=== PATIENT | female | born 1945 | race Caucasian/White ===

== ENCOUNTER 2018-03-18 15:55 | Observation (INO) | payer MEDICARE ==
--- NOTE | 2018-03-18 16:06 | ER Document Report ---
ED Cardiac - General Chief Complaint: Chest Pain > 30 Stated Complaint: CHEST PAIN Time Seen by Provider: 03/18/18 16:06 Mode of Arrival: Medic Information source: Patient, Emergency Med Personnel - HPI Patient complains to provider of: Chest pain Use of: denies: Alcohol, Amphetamines, Bath salts, Caffeine, Cocaine, Decongestants Was the onset of pain: Sudden Is the pain a: New problem Chest pain location: Other - XIPHOID Quality of pain: Pressure, Sharp Chest pain radiation location: None Severity now: None Severity at worst: Moderate Chest pain precipitating factors: At Rest Cardiac risk factors: Hypertension, Dyslipidemia Positive cardiac history: No Associated symptoms: Diaphoresis, Nausea/vomiting. denies: Shortness of breath Exacerbated by: Denies Relieved by: Other - ASA & NTG Similar symptoms previously: No Recently seen / treated by doctor: Yes - [facility], EMS TRANSPORT TO . - Related Data Allergies/Adverse Reactions: metoprolol [From Lopressor] Allergy (Verified 03/18/18 16:06) pregabalin [From Lyrica] Allergy (Verified 03/18/18 16:06) Sulfa (Sulfonamide Antibiotics) Allergy (Verified 03/18/18 16:06) Past Medical History - General Information source: Patient - Social History Smoking Status: Never Smoker Cigarette use (# per day): No Chew tobacco use (# tins/day): No Frequency of alcohol use: None Drug Abuse: None Lives with: Family Family History: None Patient has suicidal ideation: No Patient has homicidal ideation: No - Past Medical History Cardiac Medical History: Reports: Hx Hypercholesterolemia, Hx Hypertension Pulmonary Medical History: Reports: None EENT Medical History: Reports: None Neurological Medical History: Reports: None Endocrine Medical History: Reports: Hx Hypothyroidism Renal/ Medical History: Reports: None Malignancy Medical History: Reports: None GI Medical History: Reports: Hx Gastroesophageal Reflux Disease Musculoskeltal Medical History: Reports Hx Arthritis Psychiatric Medical History: Reports: None Past Surgical History: Reports: Hx Hysterectomy, Hx Orthopedic Surgery Review of Systems - Review of Systems Constitutional: See HPI EENT: No symptoms reported Cardiovascular: See HPI Respiratory: No symptoms reported Gastrointestinal: See HPI Genitourinary: No symptoms reported Female Genitourinary: Post menopausal Musculoskeletal: No symptoms reported Skin: No symptoms reported Neurological/Psychological: No symptoms reported Physical Exam - Vital signs Vitals: Resp Pulse Ox 17 99 03/18/18 16:00 03/18/18 16:00 Interpretation: Normal. No: Hypertensive, Tachycardic, Tachypneic - General General appearance: Appears well, Alert In distress: None - HEENT Head: Normocephalic Eyes: Normal Conjunctiva: Normal Ears: Normal Nasal: Normal Mouth/Lips: Normal Mucous membranes: Normal - Respiratory Respiratory status: No respiratory distress Breath sounds: Normal - Cardiovascular Rhythm: Regular Heart sounds: Normal auscultation Murmur: No - Abdominal Inspection: Normal Bowel sounds: Normal - Back Back: Normal - Extremities General upper extremity: Normal inspection General lower extremity: Normal inspection. No: Tender, Edema - Neurological Neuro grossly intact: Yes Cognition: Normal Orientation: AAOx4 - Psychological Associated symptoms: Normal affect, Normal mood - Skin Skin Temperature: Warm Skin Moisture: Dry Skin Color: Normal Skin Turgor: Elastic Course - Re-evaluation Re-evalutation: 03/18/18 18:36 Patient reports she is still asymptomatic. Results of laboratory and radiographic studies discussed. Patient states she recalls that she had a similar but less severe episode about 1 week ago, which resolved after she vomited. She has no known history of liver or gallbladder disease, however this needs to be ruled out in light of the elevations in LFTs. - Vital Signs Vital signs: Temp Pulse Resp BP Pulse Ox 97.7 F 65 22 H 117/53 L 95 03/18/18 16:04 03/18/18 16:04 03/18/18 18:01 03/18/18 18:01 03/18/18 18:01 - Laboratory Result Diagrams: 03/18/18 16:40 03/18/18 16:40 Laboratory results interpreted by me: 03/18/18 03/18/18 16:40 16:40 Seg Neutrophils % 84.9 H Lymphocytes % 9.6 L Glucose 113 H Direct Bilirubin 0.8 H AST 267 H ALT 212 H - Diagnostic Test Radiology reviewed: Image reviewed, Reports reviewed - EKG Interpretation by Me EKG shows normal: Sinus rhythm, [place], Intervals, QRS Complexes. abnormal: ST-T Waves - LAT. T ABNLS, ? ISCHEMIC Rate: Normal Rhythm: NSR - Consults DR. SOOD Time consulted: 20:56 Consulted provider: will come to ER Discharge - Discharge Clinical Impression: Chest pain Qualifiers: Chest pain type: unspecified Qualified Code(s): R07.9 - Chest pain, unspecified Cholelithiasis NOS Qualifiers: Cholelithiasis location: gallbladder Cholecystitis presence: without cholecystitis Biliary obstruction: without biliary obstruction Qualified Code(s) : K80.20 - Calculus of gallbladder without cholecystitis without obstruction Condition: Good Disposition: ADMITTED OBSERVATION Admitting Provider: Hospitalist Unit Admitted: Telemetry
[2018-03-18] MEDS ORDERED: NITROGLYCERIN 2% OINTMENT 1 GM PACKET TP ONE (16:20)
--- NOTE | 2018-03-18 16:41 | EKG REPORT ---
SEVERITY:- ABNORMAL ECG - SINUS RHYTHM ABNORMAL T, CONSIDER ISCHEMIA, LATERAL LEADS : Confirmed by: Bakari Aguirre MD 18-Mar-2018 16:40:36
[2018-03-18 16:59] LABS: ABSOLUTE LYMPHOCYTES (AUTO) 0.7 10^3/uL (0.5-4.7); ABSOLUTE MONOCYTES (AUTO) 0.3 10^3/uL (0.1-1.4); ABSOLUTE NEUT (AUTO) 6.4 10^3/uL (1.7-8.2); BASOPHILS % (AUTO) 0.4 % (0-2); EOSINOPHILS % (AUTO) 0.4 % (0-6); HEMATOCRIT 37.3 % (36.0-47.0); LYMPHOCYTES % (AUTO) 9.6 % (13-45); MEAN CORPUSCULAR HEMOGLOBIN 28.4 pg (27.0-33.4); MEAN CORPUSCULAR HGB CONC 34.7 g/dL (32.0-36.0); MEAN CORPUSCULAR VOLUME 82 fl (80-97); MONOCYTES % (AUTO) 4.7 % (3-13); PLATELET COUNT 212 10^3/uL (150-450); RED BLOOD COUNT 4.56 10^6/uL (3.72-5.28); RED CELL DISTRIBUTION WIDTH 13.7 % (11.5-14.0); SEGMENTED NEUTROPHILS % (AUTO) 84.9 % (42-78); TOTAL CELLS COUNTED % (AUTO) 100 %; WHITE BLOOD COUNT 7.5 10^3/uL (4.0-10.5)
[2018-03-18 17:16] LABS: ALANINE AMINOTRANSFERASE 212 U/L (9-52); ALBUMIN 3.7 g/dL (3.5-5.0); ALKALINE PHOSPHATASE 121 U/L (38-126); ANION GAP 12 (5-19); ASPARTATE AMINO TRANSFERASE 267 U/L (14-36); BILIRUBIN,DIRECT 0.8 mg/dL (0.0-0.4); BILIRUBIN,TOTAL 0.8 mg/dL (0.2-1.3); BLOOD UREA NITROGEN 19 mg/dL (7-20); CALCIUM 9.2 mg/dL (8.4-10.2); CARBON DIOXIDE 25 mmol/L (22-30); CHLORIDE 107 mmol/L (98-107); CREATINE KINASE 49 U/L (30-135); GLUCOSE 113 mg/dL (75-110); SODIUM 143.7 mmol/L (137-145); TOTAL PROTEIN 6.3 g/dL (6.3-8.2)
--- NOTE | 2018-03-18 17:27 | RADIOLOGY REPORT (SQ) ---
EXAM DESCRIPTION: CHEST SINGLE VIEW COMPLETED DATE/TIME: 03/18/2018 5:14 pm REASON FOR STUDY: chest pain COMPARISON: None. EXAM PARAMETERS: NUMBER OF VIEWS: One view. TECHNIQUE: Single frontal radiographic view of the chest acquired. RADIATION DOSE: NA LIMITATIONS: None. FINDINGS: LUNGS AND PLEURA: No opacities, masses or pneumothorax. No pleural effusion. MEDIASTINUM AND HILAR STRUCTURES: No masses. Contour normal. HEART AND VASCULAR STRUCTURES: Heart normal in size. Normal vasculature. BONES: No acute findings. HARDWARE: None in the chest. OTHER: No other significant finding. IMPRESSION: NO ACUTE RADIOGRAPHIC FINDING IN THE CHEST. TECHNICAL DOCUMENTATION: JOB ID: [id number] [employer]- All Rights Reserved Reading location - IP/workstation name: [email or web address]
[2018-03-18 17:28] LABS: CREATINE KINASE MB 0.52 ng/mL (<4.55)
[2018-03-18 17:30] LABS: TROPONIN I < 0.012 ng/mL
--- NOTE | 2018-03-18 20:18 | RADIOLOGY REPORT (SQ) ---
EXAM DESCRIPTION: U/S ABDOMEN LIMITED W/O DOP COMPLETED DATE/TIME: 03/18/2018 8:08 pm REASON FOR STUDY: EPIGASTRIC AND R.U.Q. PAIN COMPARISON: None. TECHNIQUE: Dynamic and static grayscale images acquired of the abdomen and recorded on PACS. Bernardo rich selected color Doppler and spectral images recorded. LIMITATIONS: None. FINDINGS: PANCREAS: No masses. Visualized duct normal. Tail was obscured by gas. LIVER: 13.1 cm. Normal echotexture. No masses. LIVER VASCULATURE: Normal directional flow of the main portal vein and hepatic veins. GALLBLADDER: Cholelithiasis. Echogenic sludge. Mild wall thickening. No pericholecystic fluid. ULTRASOUND-DETECTED NAPIER'S SIGN: Negative. INTRAHEPATIC DUCTS AND COMMON DUCT: CBD and intrahepatic ducts normal caliber. No filling defects. INFERIOR VENA CAVA: Normal flow. AORTA: No aneurysm. RIGHT KIDNEY: Normal size, 9.6 cm. Normal echogenicity. No solid or suspicious masses. No hydronephr osis. No calcifications. PERITONEAL AND RIGHT PLEURAL SPACE: No ascites or effusions. OTHER: No other significant findings. IMPRESSION: Cholelithiasis with echogenic sludge and mild thickening of the gallbladder wall. There is no sonographic Napier sign or pericholecystic fluid. TECHNICAL DOCUMENTATION: JOB ID: [id number] [employer]- All Rights Reserved Reading location - IP/workstation name: [email or web address]
[2018-03-18] MEDS ORDERED: RINGERS SOLUTION,LACTATED 1,000 ML IV PRN (20:43)
[2018-03-18] MEDS ORDERED: METOCLOPRAMIDE HCL INJ/PF 10 MG/2 ML SDV IV ONE (20:43)
[2018-03-18] MEDS ORDERED: DIPHENHYDRAMINE HCL 50 MG/ML VIAL IV ONE (20:43)
[2018-03-18] MEDS ORDERED: NITROGLYCERIN 0.4 MG/TAB 25 TAB/BOTTLE SL PRN (20:56)
[2018-03-18] MEDS ORDERED: LACTULOSE SYRUP 20 GM/30 ML UDCUP PO ONE (20:59)
[2018-03-18] MEDS: HEPARIN SOD (PORCINE) 5,000 UNIT/ML 1 ML SYRINGE SUBCUT SCH (21:36)
[2018-03-18] MEDS ORDERED: DOCUSATE SODIUM 100 MG CAPSULE PO ONE (22:00)
[2018-03-19 01:14] LABS: CREATINE KINASE MB 0.47 ng/mL (<4.55)
[2018-03-19 01:18] LABS: TROPONIN I < 0.012 ng/mL
[2018-03-19] MEDS: HEPARIN SOD (PORCINE) 5,000 UNIT/ML 1 ML SYRINGE SUBCUT SCH ×3 (05:42→22:02)
--- NOTE | 2018-03-19 05:57 | PDOC H&P ---
History of Present Illness Admission Date/PCP: 03/18/18 21:08 Patient complains of: Chest pain History of Present Illness: ARNIE BOSE is a 72 year old female with a past medical history of hypertension, dyslipidemia, GERD and neuropathy. She presents with 6 hours of burning-like retrosternal chest pain which is nonradiating associated with nausea without vomiting no palpitations or shortness of breath. She admits a similar episode approximately a week ago which resolved following an episode of vomiting. Unable to identify alleviating or exacerbating factors, denies recent cardiac stress test or change of medications she denies constipation, diarrhea or hyperglycemia. In the emergency room her workup is significant for elevated LFTs with an unremarkable right upper quadrant ultrasound. She is referred to the hospitalist for admission. Past Medical History Cardiac Medical History: Reports: Hyperlipidema, Hypertension Pulmonary Medical History: Reports: None EENT Medical History: Reports: None Neurological Medical History: Reports: None Endocrine Medical History: Reports: Hypothyroidism Renal/ Medical History: Reports: None Malignancy Medical History: Reports: None GI Medical History: Reports: Gastroesophageal Reflux Disease Musculoskeltal Medical History: Reports: Arthritis Psychiatric Medical History: Reports: None Past Surgical History Past Surgical History: Reports: Hysterectomy, Orthopedic Surgery Social History Information Source: Patient Lives with: Family Smoking Status: Never Smoker Frequency of Alcohol Use: None Hx Recreational Drug Use: No Drugs: None Hx Prescription Drug Abuse: No - Advance Directive Resuscitation Status: Full Code Family History Family History: Hypertension Parental Family History Reviewed: Yes Children Family History Reviewed: Yes Sibling(s) Family History Reviewed.: Yes Medication/Allergy Allergies/Adverse Reactions: metoprolol [From Lopressor] Allergy (Verified 03/18/18 16:06) pregabalin [From Lyrica] Allergy (Verified 03/18/18 16:06) Sulfa (Sulfonamide Antibiotics) Allergy (Verified 03/18/18 16:06) Review of Systems Constitutional: ABSENT: chills, fever(s), headache(s), weight gain, weight loss Eyes: ABSENT: visual disturbances Ears: ABSENT: hearing changes Cardiovascular: ABSENT: chest pain, dyspnea on exertion, edema, orthropnea, palpitations Respiratory: ABSENT: cough, hemoptysis Gastrointestinal: ABSENT: abdominal pain, constipation, diarrhea, hematemesis, hematochezia, nausea, vomiting Genitourinary: ABSENT: dysuria, hematuria Musculoskeletal: ABSENT: joint swelling Integumentary: ABSENT: rash, wounds Neurological: ABSENT: abnormal gait, abnormal speech, confusion, dizziness, focal weakness, syncope Psychiatric: ABSENT: anxiety, depression, homidical ideation, suicidal ideation Endocrine: ABSENT: cold intolerance, heat intolerance, polydipsia, polyuria Hematologic/Lymphatic: ABSENT: easy bleeding, easy bruising Physical Exam Vital Signs: Temp Pulse Resp BP Pulse Ox 97.7 F 55 L 15 143/57 H 98 03/19/18 03:23 03/19/18 03:23 03/19/18 03:23 03/19/18 03:23 03/19/18 03:23 Intake & Output 03/17/18 03/18/18 03/19/18 11:59 11:59 11:59 Weight 85 kg General appearance: PRESENT: no acute distress, well-developed, well-nourished Head exam: PRESENT: atraumatic, normocephalic Eye exam: PRESENT: conjunctiva pink, EOMI, PERRLA. ABSENT: scleral icterus Ear exam: PRESENT: normal external ear exam Mouth exam: PRESENT: moist, tongue midline Neck exam: ABSENT: carotid bruit, JVD, lymphadenopathy, thyromegaly Respiratory exam: PRESENT: clear to auscultation randell. ABSENT: rales, rhonchi, wheezes Cardiovascular exam: PRESENT: RRR. ABSENT: diastolic murmur, rubs, systolic murmur Pulses: PRESENT: normal dorsalis pedis pul Vascular exam: PRESENT: normal capillary refill GI/Abdominal exam: PRESENT: normal bowel sounds, soft. ABSENT: distended, guarding, mass, organolmegaly, rebound, tenderness Rectal exam: PRESENT: deferred Extremities exam: PRESENT: full ROM. ABSENT: calf tenderness, clubbing, pedal edema Neurological exam: PRESENT: alert, awake, oriented to person, oriented to place , oriented to time, oriented to situation, CN II-XII grossly intact. ABSENT: motor sensory deficit Psychiatric exam: PRESENT: appropriate affect, normal mood. ABSENT: homicidal ideation, suicidal ideation Skin exam: PRESENT: dry, intact, warm. ABSENT: cyanosis, rash Results Laboratory Results: 03/19/18 00:39 CK-MB (CK-2) 0.47 Troponin I < 0.012 Impressions: Chest X-Ray 03/18/18 16:04 IMPRESSION: NO ACUTE RADIOGRAPHIC FINDING IN THE CHEST. Abdomen Ultrasound 03/18/18 18:32 IMPRESSION: Cholelithiasis with echogenic sludge and mild thickening of the gallbladder wall. There is no sonographic Sepulveda sign or pericholecystic fluid. Assessment & Plan - Diagnosis (1) Chest pain Qualifiers: Chest pain type: unspecified Qualified Code(s): R07.9 - Chest pain, unspecified Is this a current diagnosis for this admission?: Yes Plan: Atypical chest pain though the patient's pain is atypical there are multiple risk factors for coronary artery disease and subsequently will observe and evaluation of acute coronary syndrome versus coronary artery disease with anginal equivalents. Cardiac monitoring blood pressure Q6 hours ,TSH, lipid profile, serial cardiac enzymes and cardiac stress test (2) Elevated LFTs Is this a current diagnosis for this admission?: Yes Plan: Likely fatty liver disease. Follow-up lipid profile, consider diet modification and statin - Time Time Spent: 30 to 50 Minutes
[2018-03-19 07:03] LABS: ABSOLUTE EOSINOPHILS # (AUTO) 0.1 10^3/uL (0.0-0.6); ABSOLUTE LYMPHOCYTES (AUTO) 0.9 10^3/uL (0.5-4.7); ABSOLUTE MONOCYTES (AUTO) 0.2 10^3/uL (0.1-1.4); ABSOLUTE NEUT (AUTO) 2.1 10^3/uL (1.7-8.2); BASOPHILS % (AUTO) 0.7 % (0-2); EOSINOPHILS % (AUTO) 3.1 % (0-6); HEMATOCRIT 33.8 % (36.0-47.0); HEMOGLOBIN 11.8 g/dL (12.0-15.5); LYMPHOCYTES % (AUTO) 27.4 % (13-45); MEAN CORPUSCULAR HEMOGLOBIN 28.4 pg (27.0-33.4); MEAN CORPUSCULAR VOLUME 81 fl (80-97); MONOCYTES % (AUTO) 6.2 % (3-13); PLATELET COUNT 180 10^3/uL (150-450); RED BLOOD COUNT 4.17 10^6/uL (3.72-5.28); RED CELL DISTRIBUTION WIDTH 13.4 % (11.5-14.0); SEGMENTED NEUTROPHILS % (AUTO) 62.6 % (42-78); TOTAL CELLS COUNTED % (AUTO) 100 %; WHITE BLOOD COUNT 3.3 10^3/uL (4.0-10.5)
[2018-03-19 07:24] LABS: ALANINE AMINOTRANSFERASE 762 U/L (9-52); ALBUMIN 3.4 g/dL (3.5-5.0); ALKALINE PHOSPHATASE 182 U/L (38-126); ANION GAP 7 (5-19); ASPARTATE AMINO TRANSFERASE 676 U/L (14-36); BILIRUBIN,DIRECT 0.6 mg/dL (0.0-0.4); BILIRUBIN,TOTAL 1.2 mg/dL (0.2-1.3); BLOOD UREA NITROGEN 15 mg/dL (7-20); CALCIUM 8.8 mg/dL (8.4-10.2); CARBON DIOXIDE 28 mmol/L (22-30); CHLORIDE 109 mmol/L (98-107); CHOLESTEROL 173.74 mg/dL (0-200); CREATINE KINASE 39 U/L (30-135); GLUCOSE 89 mg/dL (75-110); POTASSIUM 4.2 mmol/L (3.6-5.0); TOTAL PROTEIN 5.9 g/dL (6.3-8.2); TRIGLYCERIDES 106 mg/dL (<150)
[2018-03-19 07:34] LABS: CREATINE KINASE MB 0.48 ng/mL (<4.55)
[2018-03-19 07:35] LABS: DIRECT LDL 93 mg/dL (<100)
[2018-03-19 07:37] LABS: TROPONIN I < 0.012 ng/mL
[2018-03-19] MEDS: DOCUSATE SODIUM 100 MG CAPSULE PO SCH ×2 (11:51→17:26)
[2018-03-19] MEDS ORDERED: HYDROCHLOROTHIAZIDE 25 MG TABLET PO PRN (12:57)
[2018-03-19] MEDS ORDERED: REGADENOSON INJ 0.4 MG/5 ML DISP.SYRIN IV ONE (13:58)
[2018-03-19] MEDS: LEVOTHYROXINE SODIUM 0.05 MG TABLET PO SCH (14:38)
[2018-03-19] MEDS ORDERED: LANSOPRAZOLE 15 MG TAB.RAP.DR PO PRN (14:38)
[2018-03-19] MEDS ORDERED: LIDOCAINE 2% VISCOUS SOLN 20 ML UDCUP PO ONE (16:08)
[2018-03-19] MEDS: MAG HYDROX/AL HYDROX/SIMETH SUSP 30 ML UDCUP PO PRN ×2 (16:39→22:02)
[2018-03-19] MEDS: LANSOPRAZOLE 15 MG TAB.RAP.DR PO SCH (16:39)
[2018-03-19] MEDS: ONDANSETRON 4 MG TAB.RAPDIS PO PRN (16:40)
--- NOTE | 2018-03-19 18:34 | EKG REPORT ---
SEVERITY:- ABNORMAL ECG - SINUS RHYTHM NONSPECIFIC T ABNORMALITIES, ANT-LAT LEADS : Confirmed by: Bakari Aguirre MD 19-Mar-2018 18:33:16
--- NOTE | 2018-03-19 20:22 | PDOC PROGRESS REPORT ---
Subjective Progress Note for:: 03/19/18 Subjective:: ARNIE BOSE is a 72 y.o. F with a PMH of HTN, HLD, GERD and neuropathy. She presents with burning retrosternal chest pain which is nonradiating associated with nausea without vomiting no palpitations or shortness of breath. The patient is seen this afternoon on rounds following her stress test. She still endorses mild epigastric "burning" pain. Pain is reproducable with palpation in the epigastric region. Additionally, she is TTP in the LLQ. She denies nausea, SOB, or diarrhea. Reason For Visit: CHEST PAIN ELEVATED LFTS Physical Exam Vital Signs: Temp Pulse Resp BP Pulse Ox 98.0 F 56 L 24 H 159/61 H 96 03/19/18 15:52 03/19/18 15:52 03/19/18 15:52 03/19/18 15:52 03/19/18 11:18 Intake & Output 03/18/18 03/19/18 03/20/18 06:59 06:59 06:59 Intake Total 0 1125 Output Total 600 Balance -600 1125 Weight 85 kg General appearance: PRESENT: no acute distress Eye exam: PRESENT: conjunctiva pink, PERRLA Mouth exam: PRESENT: moist, neck supple Neck exam: PRESENT: full ROM Respiratory exam: PRESENT: clear to auscultation randell, symmetrical, unlabored Cardiovascular exam: PRESENT: RRR, +S1, +S2 Pulses: PRESENT: normal radial pulses, normal dorsalis pedis pul GI/Abdominal exam: PRESENT: normal bowel sounds, soft, tenderness - Epigastric area & LLQ Rectal exam: PRESENT: deferred Extremities exam: PRESENT: full ROM Musculoskeletal exam: PRESENT: ambulatory, full ROM Neurological exam: PRESENT: alert, awake, oriented to person, oriented to place , oriented to time, oriented to situation Psychiatric exam: PRESENT: appropriate affect Skin exam: PRESENT: dry, intact, normal color, warm Results Laboratory Results: 03/19/18 06:43 03/19/18 06:43 03/19/18 03/19/18 06:43 06:43 WBC 3.3 L RBC 4.17 Hgb 11.8 L Hct 33.8 L MCV 81 MCH 28.4 MCHC 35.0 RDW 13.4 Plt Count 180 Seg Neutrophils % 62.6 Lymphocytes % 27.4 Monocytes % 6.2 Eosinophils % 3.1 Basophils % 0.7 Absolute Neutrophils 2.1 Absolute Lymphocytes 0.9 Absolute Monocytes 0.2 Absolute Eosinophils 0.1 Absolute Basophils 0.0 Sodium 144.0 Potassium 4.2 Chloride 109 H Carbon Dioxide 28 Anion Gap 7 BUN 15 Creatinine 0.81 Est GFR ( Amer) > 60 Est GFR (Non-Af Amer) > 60 Glucose 89 Calcium 8.8 Total Bilirubin 1.2 AST 676 H ALT 762 H Alkaline Phosphatase 182 H Total Protein 5.9 L Albumin 3.4 L Triglycerides 106 Cholesterol 173.74 LDL Cholesterol Direct 93 VLDL Cholesterol 21.0 HDL Cholesterol 48 03/19/18 03/19/18 03/19/18 00:39 06:43 06:43 Creatine Kinase 39 CK-MB (CK-2) 0.47 0.48 Troponin I < 0.012 < 0.012 Impressions: Chest X-Ray 03/18/18 16:04 IMPRESSION: NO ACUTE RADIOGRAPHIC FINDING IN THE CHEST. Abdomen Ultrasound 03/18/18 18:32 IMPRESSION: Cholelithiasis with echogenic sludge and mild thickening of the gallbladder wall. There is no sonographic Sepulveda sign or pericholecystic fluid. Status: Imported from PACS Assessment & Plan - Diagnosis (1) Chest pain Qualifiers: Chest pain type: unspecified Qualified Code(s): R07.9 - Chest pain, unspecified Is this a current diagnosis for this admission?: Yes Plan: Patient reports epigastric "burning" after eating The pain is reproducable with palpation EKG shows NSR, no infarct or ischemia Serial Troponin < 0.012, no longer trending Stress test completed today, results benign Plan for CT abd/pelvis tonight. If results normal, will discharge home in AM (2) Cholelithiasis NOS Qualifiers: Cholelithiasis location: gallbladder Cholecystitis presence: without cholecystitis Biliary obstruction: without biliary obstruction Qualified Code(s): K80.20 - Calculus of gallbladder without cholecystitis without obstruction Is this a current diagnosis for this admission?: Yes Plan: Seen on abdominal US cholelithiasis with echogenic sludge and mild gallbladder wall thickening Patient still endorses epigastric pain and tenderness PRN maalox and zofran daily prevacid Plan for CT Abd/pelvis tonight (3) Elevated LFTs Is this a current diagnosis for this admission?: Yes Plan: Likely secondary to BEAVERS Plan for CT abd/pelvis tonight If results WNL, plan to discharge home Cholesterol levels within normal limits - Time Time Spent with patient: 15-24 minutes Medications reviewed and adjusted accordingly: Yes Anticipated discharge: Home Within: within 24 hours - Inpatient Certification Based on my medical assessment, after consideration of the patient's comorbidities, presenting symptoms, or acuity I expect that the services needed warrant INPATIENT care.: Yes I certify that my determination is in accordance with my understanding of Medicare's requirements for reasonable and necessary INPATIENT services [42 CFR 412.3e].: Yes Medical Necessity: Risk of Complication if Not Cared For in Hospital - Plan Summary Plan Summary: ct abdomen/pelvis. if normal, will discharge home in AM
[2018-03-19] MEDS ORDERED: (PENDING PHARMACY ID) (Nifedipine [Nifedipine Er] 60 MG) PO SCH (22:00)
[2018-03-19] MEDS ORDERED: ROPINIROLE HCL 2 MG TABLET PO SCH (22:00)
[2018-03-19] MEDS ORDERED: ROPINIROLE HCL 5 MG PO SCH (22:00)
[2018-03-19] MEDS ORDERED: (PENDING PHARMACY ID) (Benazepril Hcl [Lotensin] 40 MG) PO SCH (22:00)
[2018-03-19] MEDS ORDERED: NIFEDIPINE 30 MG TAB.ER.24 PO SCH (22:00)
[2018-03-19] MEDS ORDERED: BENAZEPRIL HCL 20 MG TABLET PO SCH (22:00)
[2018-03-20] MEDS: LEVOTHYROXINE SODIUM 0.05 MG TABLET PO SCH (05:57)
[2018-03-20] MEDS: HEPARIN SOD (PORCINE) 5,000 UNIT/ML 1 ML SYRINGE SUBCUT SCH ×2 (05:57→14:47)
[2018-03-20 06:48] LABS: ALANINE AMINOTRANSFERASE 923 U/L (9-52); ALBUMIN 3.4 g/dL (3.5-5.0); ALKALINE PHOSPHATASE 227 U/L (38-126); ANION GAP 6 (5-19); ASPARTATE AMINO TRANSFERASE 674 U/L (14-36); BILIRUBIN,DIRECT 0.4 mg/dL (0.0-0.4); BILIRUBIN,TOTAL 0.5 mg/dL (0.2-1.3); BLOOD UREA NITROGEN 13 mg/dL (7-20); CALCIUM 8.5 mg/dL (8.4-10.2); CARBON DIOXIDE 31 mmol/L (22-30); CHLORIDE 108 mmol/L (98-107); GLUCOSE 100 mg/dL (75-110); POTASSIUM 3.7 mmol/L (3.6-5.0); SODIUM 144.9 mmol/L (137-145); TOTAL PROTEIN 5.9 g/dL (6.3-8.2)
--- NOTE | 2018-03-20 08:15 | RADIOLOGY REPORT (SQ) ---
EXAM DESCRIPTION: CT ABD/PELVIS WITH IV ORAL COMPLETED DATE/TIME: 03/19/2018 7:04 pm REASON FOR STUDY: RUQ LLQ pain. +TTP COMPARISON: Prior upper quadrant ultrasound 03/18/2018 Chest films 03/18/2018 TECHNIQUE: CT scan of the abdomen and pelvis performed using helical scanning technique with dynamic intravenous contrast injection. Patient drank oral contrast. Images reviewed with lung, soft tissue , and bone windows. Reconstructed coronal and sagittal MPR images reviewed. Delayed images for evalua tion of the urinary system also acquired. All images stored on PACS. All CT scanners at this facility use dose modulation, iterative reconstruction, and/or weight based d osing when appropriate to reduce radiation dose to as low as reasonably achievable (ALARA). [facility]: Dose Right [facility]: CareDose [facility]: Dose Right [facility]: Teradose 4D [facility]: Vaimicom CONTRAST TYPE AND DOSE: contrast/concentration: Isovue 370.00 mg/ml; Total Contrast Delivered: 92.0 ml; Total Saline Delivered: 70.0 ml RENAL FUNCTION: Creatinine 0.8 RADIATION DOSE: CT Rad equipment meets quality standard of care and radiation dose reduction techniq ues were employed. CTDIvol: 12.1 - 17.2 mGy. DLP: 1440 mGy-cm.. LIMITATIONS: None. FINDINGS: LOWER CHEST: No significant findings. No nodules or infiltrates. LIVER: Normal size. No masses. No dilated ducts. SPLEEN: Normal size. No focal lesions. PANCREAS: No masses. No significant calcifications. No adjacent inflammation or peripancreatic fluid collections. Pancreatic duct not dilated. GALLBLADDER: No identified stones by CT criteria. No inflammatory changes to suggest cholecystitis. ADRENAL GLANDS: No significant masses or asymmetry. RIGHT KIDNEY AND URETER: No solid masses. No significant calcifications. No hydronephrosis or hyd roureter. LEFT KIDNEY AND URETER: No solid masses. No significant calcifications. No hydronephrosis or hydr oureter. AORTA AND VESSELS: No aneurysm. No dissection. Renal arteries, SMA, celiac without stenosis. RETROPERITONEUM: No retroperitoneal adenopathy, hemorrhage or masses. BOWEL AND PERITONEAL CAVITY: Patient drank oral contrast. No CT evidence of bowel obstruction, free intraperitoneal air or fluid or diverticulitis. APPENDIX: Normal. PELVIS: No mass. No free fluid. Normal bladder. Post hysterectomy ABDOMINAL WALL: No masses. No hernias. BONES: No significant or acute findings. OTHER: No other significant finding. IMPRESSION: NO SIGNIFICANT OR ACUTE FINDING IN THE ABDOMEN OR PELVIS ON CT SCAN WITH IV CONTRAST. TECHNICAL DOCUMENTATION: JOB ID: [id number] Quality ID # [id number]: Final reports with documentation of one or more dose reduction techniques (e.g., Au tomated exposure control, adjustment of the mA and/or kV according to patient size, use of iterative reconstruction technique) 2010 [employer]- All Rights Reserved Reading location - IP/workstation name: [email or web address]
[2018-03-20] MEDS: LANSOPRAZOLE 15 MG TAB.RAP.DR PO SCH (09:32)
[2018-03-20] MEDS: DOCUSATE SODIUM 100 MG CAPSULE PO SCH (09:32)
[2018-03-20] MEDS: MAG HYDROX/AL HYDROX/SIMETH SUSP 30 ML UDCUP PO PRN (12:46)
[2018-03-20] MEDS: ONDANSETRON 4 MG TAB.RAPDIS PO PRN (12:47)
[2018-03-20 13:08] VITALS: BP 147/52
--- NOTE | 2018-03-22 21:53 | DRAGON STRESS TEST REPORT ---
Intravenous Lexiscan Cardiolite stress test using single photon emmision computerized tomography. Date of procedure: 03/19/2018. Ordering Provider: Dr. Arnoldo Magana. Patient's status: In Patient. Indication: Chest pain. Coronary risk factors: Age, hypertension, and dyslipidemia. Resting EKG: Sinus Rhythm. T inversion in leads I and aVL. Stress EKG: No changes of ischemia. The patient no chest pain or discomfort, and there were no arrhythmias seen. Reason for termination: Protocol. Conclusions: Normal EKG and hemodynamic response to IV Lexiscan. Nuclear data: At rest the patient was given 12.91 millicuries of technetium 99m sestamibi injected intravenously. As per protocol rest non gated SPECT images were obtained. Subsequently the patient was given intravenous Lexiscan at a dose of 0.4 mg in 5 mL intravenously, followed by flush with normal saline. Subsequently the stress dose of 38.2 millicuries of technetium 99m sestamibi was injected intravenously. As per protocol stress gated images were obtained. Nuclear interpretation: Review of images showed that all segments of the myocardium had normal perfusion at rest, and normal perfusion post stress with IV Lexiscan. All segments of the myocardium had normal motion, contraction, and thickening by gated study. T. I D. ratio was normal at 1.10. Computer read rest, and stress left ventricular ejection fraction were 80 %, and 80 %, respectively. Conclusion: 1. There is no scintigraphic evidence of Lexiscan induced myocardial ischemia. 2. There is no scintigraphic evidence of myocardial infarction/scar. Recommendations: Aggressive risk factor modification, and treating the underlying co- morbidities. [facility]
== END 2018-03-20 14:56 | disposition home or self-care (01) ==
LOC: ER 15:55 → EH 21:08 → 4S 22:47
PROVIDERS: ADMIT Internal Medicine; ATTEND Internal Medicine
DX: R07.89 Other chest pain (principal); K80.20 Calculus of gallbladder without cholecystitis without obstruction; R79.89 Other specified abnormal findings of blood chemistry; I10 Essential (primary) hypertension; E78.5 Hyperlipidemia, unspecified; E03.9 Hypothyroidism, unspecified; K21.9 Gastro-esophageal reflux disease without esophagitis
CPT/HCPCS: 93005 ×2; 99285; 36415 ×3; 82553 ×2; 82550 ×2; 83690; 85025 ×2; 80076; 80048; 80053 ×2; 84484 ×2; 80061; 93017; 71045; 76705; 78452; 74177; 93010 ×2; G0378 ×3; A9500; A9270 ×10; J2785; J1644 ×2; J3490 ×3; Q9969; S0119